=== PATIENT | male | born 1945 | race Caucasian/White ===

== ENCOUNTER 2020-10-03 09:16 | Inpatient (IN) ==
[2020-10-03 09:35] LABS: Basophils # 0.1 K/mcL (0.0-0.2); Basophils % 0.4 %; Eosinophils # 0.3 K/mcL (0.0-0.6); Eosinophils % 1.8 %; Hematocrit 35.8 % (37.5-50.1); Hemoglobin 11.6 g/dL (12.9-16.9); Immature Granulocytes % 0.6 % (0-4); Lymphocytes % 12.6 %; Mean Corpuscular HGB Conc 32.4 g/dL (31.6-35.5); Mean Corpuscular Hemoglobin 31.5 pg (28.0-33.3); Mean Corpuscular Volume 97.3 fL (83.0-100.0); Mean Platelet Volume 10.1 fL (9.4-12.4); Monocytes # 1.2 K/mcL (0.0-1.3); Monocytes % 7.5 %; Neutrophils # 12.3 K/mcL (1.6-8.9); Platelet Count 196 K/mcL (140-400); Red Blood Count 3.68 M/mcL (4.19-5.50); Red Cell Distribution Width 13.9 % (11.5-14.5); Segmented Neutrophils % 77.1 %
[2020-10-03 09:57] LABS: Albumin 4.3 g/dL (3.5-5.7); Albumin/Globulin Ratio 1.5 (1.1-2.2); Bilirubin,Direct 0.1 mg/dL (0.0-0.2); Bilirubin,Indirect 0.4 mg/dL (0.0-1.0); Bilirubin,Total 0.5 mg/dL (0.3-1.0); Calcium 10.2 mg/dL (8.6-10.3); Globulin 2.9 g/dL (2.4-3.5); Potassium 4.1 mEq/L (3.5-5.1); Total Protein 7.2 g/dL (6.4-8.9)
[2020-10-03 10:43] LABS: Troponin I 0.05 ng/mL (< 0.04)
[2020-10-03 10:58] LABS: Bacteria,Urine Few per hpf (None-Few); Bilirubin,Urine Negative (Negative); Blood,Urine Negative (Negative); Clarity,Urine Clear (Clear); Color,Urine Colorless (Yellow); Glucose,Urine (UA) Normal (Normal); Hyaline Casts,Urine Few per lpf (None Seen); Ketones,Urine Negative (Negative); Leukocyte Esterase,Urine Negative (Negative); Nitrite,Urine Negative (Negative); PH,Urine 6.5 pH Units (5.0-8.0); Protein,Urine 30 mg/dL (Neg-Trace); RBC,Urine 0-3 per hpf (0-3); Specific Gravity,Urine 1.011 (1.010-1.025); Urobilinogen,Urine Normal (Normal); WBC,Urine 0-3 per hpf (0-3)
[2020-10-03] MEDS ORDERED: 0.9 % Sodium Chloride 1,000 ML IVC ONE (11:09)
[2020-10-03] MEDS ORDERED: 0.9 % Sodium Chloride 500 ML IVC ONE (11:21)
[2020-10-03] MEDS ORDERED: Vancomycin 1,500 MG/265 ML IV.SOLN IVPB ONE (11:45)
[2020-10-03] MEDS ORDERED: Acetaminophen 325 MG TABLET PO PRN (13:17)
[2020-10-03] MEDS ORDERED: Naloxone 0.4 MG/ML INJ IVP PRN (13:17)
[2020-10-03 14:18] LABS: INR 1.1; Prothrombin Time 12.3 Seconds (9.4-12.1)
[2020-10-03] MEDS: Ondansetron 4 MG/2 ML VIAL IVP PRN ×2 (14:20→22:37)
[2020-10-03] MEDS ORDERED: *HR* Dextrose 50 % in Water (Vial) 50 ML VIAL IVP PRN (17:15)
[2020-10-03] MEDS ORDERED: D5% in Water 1,000 ML IVC PRN (17:15)
[2020-10-03] MEDS ORDERED: Dextrose Gel 15 GM/37.5 ML TUBE PO PRN ×2 (17:15)
[2020-10-03] MEDS: *HR* Heparin 5,000 UNIT/ML VIAL SQ SCH (17:25)
[2020-10-03] MEDS ORDERED: Aspirin 325 MG TABLET PO ONE (17:43)
[2020-10-03] MEDS ORDERED: Perflutren Lipid Microsphere 1.3 ML in 0.9 % Sodium Chloride 8.7 ML IVP PRN (17:43)
[2020-10-03] MEDS: Piperacillin/Tazobactam 3.375 GM in 0.9 % Sodium Chloride Mini Bag 100 ML IVPB SCH (18:00)
[2020-10-03] MEDS: 0.9 % Sodium Chloride 1,000 ML IVC SCH (20:27)
[2020-10-03] MEDS: Insulin LISPRO 300 UNITS/3 ML VIAL SQ SCH (20:35)
[2020-10-04] MEDS: Piperacillin/Tazobactam 3.375 GM in 0.9 % Sodium Chloride Mini Bag 100 ML IVPB SCH ×2 (04:47→16:17)
[2020-10-04] MEDS: *HR* Heparin 5,000 UNIT/ML VIAL SQ SCH ×2 (04:48→16:17)
[2020-10-04 05:30] LABS: Hematocrit 33.5 % (37.5-50.1); Hemoglobin 10.5 g/dL (12.9-16.9); Mean Corpuscular HGB Conc 31.3 g/dL (31.6-35.5); Mean Corpuscular Hemoglobin 30.9 pg (28.0-33.3); Mean Corpuscular Volume 98.5 fL (83.0-100.0); Mean Platelet Volume 10.3 fL (9.4-12.4); Platelet Count 182 K/mcL (140-400); Red Cell Distribution Width 14.2 % (11.5-14.5); White Blood Count 10.2 K/mcL (4.3-11.1)
[2020-10-04 05:34] LABS: INR 1.1; Prothrombin Time 12.9 Seconds (9.4-12.1)
[2020-10-04 05:51] LABS: Calcium 9.3 mg/dL (8.6-10.3); Magnesium 2.7 mg/dL (1.6-2.6); Phosphorous 3.9 mg/dL (2.7-4.5); Potassium 4.5 mEq/L (3.5-5.1)
[2020-10-04 07:33] LABS: Estimated Average Glucose 160 mg/dl
[2020-10-04] MEDS: Insulin LISPRO 300 UNITS/3 ML VIAL SQ SCH ×4 (07:43→20:14)
[2020-10-04] MEDS: Aspirin 81 MG TAB.CHEW PO SCH (07:46)
[2020-10-04] MEDS: 0.9 % Sodium Chloride 1,000 ML IVC SCH (09:40)
[2020-10-05] MEDS: 0.9 % Sodium Chloride 1,000 ML IVC SCH (00:43)
[2020-10-05 05:32] LABS: Basophils # 0.1 K/mcL (0.0-0.2); Basophils % 0.5 %; Eosinophils # 0.4 K/mcL (0.0-0.6); Eosinophils % 3.7 %; Hematocrit 32.6 % (37.5-50.1); Immature Granulocytes % 0.3 % (0-4); Lymphocytes # 1.3 K/mcL (0.6-4.6); Lymphocytes % 13.2 %; Mean Corpuscular HGB Conc 30.7 g/dL (31.6-35.5); Mean Corpuscular Hemoglobin 31.4 pg (28.0-33.3); Mean Corpuscular Volume 102.5 fL (83.0-100.0); Monocytes # 0.9 K/mcL (0.0-1.3); Neutrophils # 7.2 K/mcL (1.6-8.9); Platelet Count 170 K/mcL (140-400); Red Blood Count 3.18 M/mcL (4.19-5.50); Red Cell Distribution Width 14.1 % (11.5-14.5); Segmented Neutrophils % 73.3 %; White Blood Count 9.9 K/mcL (4.3-11.1)
[2020-10-05 05:54] LABS: Potassium 4.3 mEq/L (3.5-5.1)
[2020-10-05] MEDS: *HR* Heparin 5,000 UNIT/ML VIAL SQ SCH (06:19)
[2020-10-05] MEDS: Piperacillin/Tazobactam 3.375 GM in 0.9 % Sodium Chloride Mini Bag 100 ML IVPB SCH (06:19)
[2020-10-05] MEDS ORDERED: Vancomycin 1,250 MG/262.5 ML IV.SOLN IVPB ONE (06:49)
[2020-10-05] MEDS: Insulin LISPRO 300 UNITS/3 ML VIAL SQ SCH ×2 (07:46→12:13)
[2020-10-05] MEDS: Aspirin 81 MG TAB.CHEW PO SCH (07:47)
[2020-10-05 11:35] VITALS: BP 175/67
[2020-10-05] MEDS ORDERED: Piperacillin/Tazobactam 3.375 GM in 0.9 % Sodium Chloride Mini Bag 100 ML IVPB SCH (14:00)
== END 2020-10-05 15:10 | disposition home health service (06) | DRG 871 ==
LOC: 2ANU 09:16 → EMEROOARM 09:16 → 2ANU 13:08 → SUATTDRO 13:47
PROVIDERS: ADMIT Internal Medicine; ATTEND Internal Medicine

== ENCOUNTER 2021-03-07 12:25 | Inpatient (IN) ==
[2021-03-07] MEDS ORDERED: methylPREDNISolone 125 MG/2 ML VIAL IVP ONE (12:57)
[2021-03-07] MEDS ORDERED: Ipratropium/Albuterol Neb 3 ML IH ONE (12:57)
[2021-03-07] MEDS ORDERED: Furosemide 40 MG/4 ML VIAL IVP ONE (12:57)
[2021-03-07 13:40] LABS: Basophils % 0.1 %; Hematocrit 22.6 % (37.5-50.1); Hemoglobin 7.3 g/dL (12.9-16.9); Immature Granulocytes % 1.2 % (0-4); Lymphocytes # 0.8 K/mcL (0.6-4.6); Lymphocytes % 5.2 %; Mean Corpuscular HGB Conc 32.3 g/dL (31.6-35.5); Mean Corpuscular Hemoglobin 31.2 pg (28.0-33.3); Mean Corpuscular Volume 96.6 fL (83.0-100.0); Monocytes # 0.8 K/mcL (0.0-1.3); Monocytes % 5.1 %; Neutrophils # 13.6 K/mcL (1.6-8.9); Platelet Count 189 K/mcL (140-400); Red Blood Count 2.34 M/mcL (4.19-5.50); Red Cell Distribution Width 14.4 % (11.5-14.5); Segmented Neutrophils % 88.4 %; White Blood Count 15.3 K/mcL (4.3-11.1)
[2021-03-07 13:50] LABS: INR 1.1; Prothrombin Time 12.2 Seconds (9.4-12.1)
[2021-03-07 13:52] LABS: Activated Partial Thrombo Time 22.3 Seconds (26.0-36.0)
[2021-03-07 14:05] LABS: Blood Urea Nitrogen > 130 mg/dL (8-23); Calcium 9.4 mg/dL (8.6-10.3); Carbon Dioxide 14 mEq/L (23-29); Chloride 98 mEq/L (98-107); Glucose 319 mg/dL (70-105); Potassium 5.3 mEq/L (3.5-5.1); Sodium 126 mEq/L (136-145); Troponin I 0.63 ng/mL (< 0.04); eGFR For African Americans 17 (> 60); eGFR For Non-African Americans 14 (> 60)
[2021-03-07] MEDS ORDERED: *HR* Heparin 5,000 UNIT/ML VIAL IVP PRN ×2 (14:20)
[2021-03-07] MEDS ORDERED: *HR* Heparin 5,000 UNIT/ML VIAL IVP ONE (14:20)
[2021-03-07] MEDS ORDERED: Heparin 25,000UNIT/250ML 1/2NS 25,000 UNIT/250 ML IV.SOLN IVC SCH (14:30)
[2021-03-07] MEDS ORDERED: allopurinoL 100 MG TABLET PO PRN (14:41)
[2021-03-07] MEDS ORDERED: *HR* Dextrose 50 % in Water (Vial) 50 ML VIAL IVP PRN (14:44)
[2021-03-07] MEDS ORDERED: Ondansetron 4 MG/2 ML VIAL IVP PRN (14:44)
[2021-03-07] MEDS ORDERED: D5% in Water 1,000 ML IVC PRN (14:44)
[2021-03-07] MEDS ORDERED: Melatonin 3 MG TABLET PO PRN (14:44)
[2021-03-07] MEDS ORDERED: Acetaminophen 325 MG TABLET PO PRN (14:44)
[2021-03-07] MEDS ORDERED: Dextrose Gel 15 GM/37.5 ML TUBE PO PRN ×2 (14:44)
[2021-03-07 15:18] LABS: Hematocrit 23.2 % (37.5-50.1); Hemoglobin 7.3 g/dL (12.9-16.9); Mean Corpuscular HGB Conc 31.5 g/dL (31.6-35.5); Mean Corpuscular Hemoglobin 30.5 pg (28.0-33.3); Mean Corpuscular Volume 97.1 fL (83.0-100.0); Mean Platelet Volume 11.7 fL (9.4-12.4); Platelet Count 185 K/mcL (140-400); Red Blood Count 2.39 M/mcL (4.19-5.50); Red Cell Distribution Width 14.3 % (11.5-14.5)
[2021-03-07 15:28] LABS: Prothrombin Time 12.1 Seconds (9.4-12.1)
[2021-03-07 15:31] LABS: Heparin anti-factor XA UFH 0.04 IU/mL (0.30-0.70)
[2021-03-07] MEDS ORDERED: Perflutren Lipid Microsphere 1.3 ML in 0.9 % Sodium Chloride 8.7 ML IVP PRN (16:04)
[2021-03-07] MEDS ORDERED: Insulin LISPRO 300 UNITS/3 ML VIAL SUBQ SCH ×2 (16:30→21:00)
[2021-03-07] MEDS ORDERED: Insulin DETEMIR 100 UNIT/ML X5UNITS SUBQ SCH (21:00)
[2021-03-07] MEDS ORDERED: hydrALAZINE 25 MG TABLET PO SCH (21:00)
[2021-03-07] MEDS ORDERED: Budesonide/Formoterol 160/4.5 1 PUFF INH IH SCH (22:00)
[2021-03-07] MEDS: Ipratropium/Albuterol Neb 3 ML IH PRN (23:56)
[2021-03-08] MEDS ORDERED: Furosemide 40 MG/4 ML VIAL IVP SCH (00:15)
[2021-03-08 01:01] LABS: Hematocrit 19.2 % (37.5-50.1); Hemoglobin 6.1 g/dL (12.9-16.9); Mean Corpuscular HGB Conc 31.8 g/dL (31.6-35.5); Mean Corpuscular Hemoglobin 31.1 pg (28.0-33.3); Mean Platelet Volume 12.2 fL (9.4-12.4); Platelet Count 171 K/mcL (140-400); Red Blood Count 1.96 M/mcL (4.19-5.50); Red Cell Distribution Width 14.6 % (11.5-14.5); White Blood Count 15.5 K/mcL (4.3-11.1)
[2021-03-08 01:07] LABS: Albumin 3.3 g/dL (3.5-5.7); Albumin/Globulin Ratio 1.7 (1.1-2.2); Bilirubin,Direct 0.1 mg/dL (0.0-0.2); Bilirubin,Indirect 0.3 mg/dL (0.0-1.0); Bilirubin,Total 0.4 mg/dL (0.3-1.0); Globulin 1.9 g/dL (2.4-3.5); Total Protein 5.2 g/dL (6.4-8.9)
[2021-03-08 01:11] LABS: Blood Urea Nitrogen > 130 mg/dL (8-23); Calcium 8.9 mg/dL (8.6-10.3); Carbon Dioxide 13 mEq/L (23-29); Chloride 100 mEq/L (98-107); Glucose 281 mg/dL (70-105); Magnesium 2.7 mg/dL (1.6-2.6); Phosphorous 6.1 mg/dL (2.7-4.5); Potassium 5.7 mEq/L (3.5-5.1); Sodium 125 mEq/L (136-145); Troponin I 0.89 ng/mL (< 0.04); eGFR For African Americans 15 (> 60); eGFR For Non-African Americans 13 (> 60)
[2021-03-08 01:24] LABS: Hepatitis B Surface Antigen Nonreactive (Nonreactive)
[2021-03-08 01:53] LABS: Hepatitis C Virus Antibody Nonreactive (Nonreactive)
[2021-03-08 01:54] LABS: Hepatitis B Core IgM Nonreactive (Nonreactive)
[2021-03-08 01:56] LABS: Hepatitis A Antibody IgM Nonreactive (Nonreactive)
[2021-03-08 03:45] LABS: Estimated Average Glucose 151 mg/dl; Hemoglobin A1C 6.9 %
[2021-03-08 04:22] VITALS: BP 120/68
[2021-03-08] MEDS: Ipratropium/Albuterol Neb 3 ML IH PRN (04:46)
[2021-03-08] MEDS ORDERED: Aspirin Enteric Coated 81 MG Tablet PO SCH (09:00)
[2021-03-08] MEDS ORDERED: amLODIPine 5 MG TABLET PO SCH (09:00)
== END 2021-03-08 08:41 | disposition expired ==
LOC: EMEROOARM 12:25 → 3BNU 12:25 → 2ANU 15:35 → SUATTDRO 15:36 → 2ANU 16:15
PROVIDERS: ADMIT Internal Medicine; ATTEND Internal Medicine